=== PATIENT | female | born 1990 | race Caucasian/White ===

== ENCOUNTER 2018-08-30 15:57 | Inpatient (IN) | payer OTHER ==
[~2018-08-30] VITALS: Ht 160 cm; Wt 53.2 kg
--- NOTE | ~2018-08-30 | EKG ---
[place], [place] ELECTROCARDIOGRAM REPORT NAME: DEZ MOMIN UNIT #: [id number] ROOM: 512 DOCTOR: RYANNE DRAFT REPORT BIRTHDATE: [birth year] [facility] Test Date: 2018-09-01 Test Time: 13:52:18 Pat Name: DEZ MOMIN Department: Room: 512 1 Gender: F Shot Examiner: Angela Suárez : 1990 Requested By: CYRUS OCAMPO Order Number: [id number] Reading MD: Alon Abebe MD Measurements Intervals Alleene Rate: 51 P: 31 MA: 95 QRS: 44 QRSD: 89 T: 45 QT: 472 QTc: 435 Interpretive Statements Sinus rhythm Short MA interval LVH by voltage Baseline wander in lead(s) V4 Electronically Signed On 09-01-2018 15:32:13 PST by Alon Abebe MD CM:EKGRPT:ELECTROCARDIOGRAM REPORT [id number] CYRUS FITCH DRAFT REPORT CYRUS OCAMPO DO
[2018-08-30 17:37] LABS: BASO % 0.2 % (0.0-1.0); EOS % 0.3 % (1.0-4.0); HEMATOCRIT 38.1 % (37.0-47.0); LYMPH # 1.4 10*3/uL (1.3-4.4); LYMPH % 22.3 % (27.0-41.0); MEAN CELL VOLUME 89.2 fl (81.0-99.0); MEAN CORPUSCULAR HGB 30.4 pg (27.0-31.0); MEAN CORPUSCULAR HGB CONC 34.1 g/dl (33.0-37.0); MEAN PLATELET VOLUME 9.8 fl (9.6-12.3); MONO # 0.3 10*3/uL (0.1-1.0); MONO % 4.8 % (3.0-9.0); NEUT # 4.7 10*3/uL (2.3-7.9); NEUT % 72.1 % (47.0-73.0); PLATELET COUNT AUTOMATED 243 10*3/uL (130-400); RED BLOOD COUNT 4.27 10*6/uL (4.10-5.10); RED CELL DISTRI WIDTH 13.1 % (0-14.5); WHITE BLOOD COUNT 6.5 10*3/uL (4.8-10.8)
[2018-08-30 17:50] LABS: ALBUMIN 3.8 gm/dl (3.1-4.5); ALKALINE PHOSPHATASE 87 U/L (45-117); BUN 10 mg/dl (7-24); CHLORIDE 108 mmol/L (98-107); CREATININE 0.74 mg/dL (0.55-1.02); POTASSIUM 4.1 mmol/L (3.5-5.1); SGOT/AST 18 IU/L (3-35); SGPT/ALT 25 U/L (12-78); SODIUM 139 mmol/L (136-145); TOTAL PROTEIN 7.8 gm/dL (6.4-8.2)
[2018-08-30 17:58] LABS: ETHYL ALCOHOL < 3.0 mg/dl (<3)
[2018-08-30 18:41] LABS: BILIRUBIN NEGATIVE (NEGATIVE); BLOOD NEGATIVE (NEGATIVE); CLARITY CLEAR (CLEAR); COLOR YELLOW (YELLOW); GLUCOSE NEGATIVE (NEGATIVE); KETONE NEGATIVE (NEGATIVE); LEUKO ESTERASE NEGATIVE (NEGATIVE); NITRITE NEGATIVE (NEGATIVE); PH 6.5 (5.0-9.0); SPECIFIC GRAVITY 1.025 (1.005-1.030)
[2018-08-30 18:49] LABS: URINE AMPHETAMINES < 1000 (1000ng/ml); URINE BARBITURATES < 200 (200ng/ml); URINE BENZODIAZEPINES < 200 (200ng/ml); URINE CANNABINOIDS (THC) > 50 (50ng/ml); URINE COCAINE > 300 (300ng/ml); URINE METHADONE < 300 (300ng/ml); URINE OPIATES > 300 (300ng/ml)
[2018-08-30 18:50] LABS: RBC 0-2 rbc/hpf (0-2); WBC 0-2 wbc/hpf (0-5)
[2018-08-30 19:04] LABS: URINE PHENCYCLIDINE < 25 (25ng/ml)
[2018-08-31 06:08] LABS: HEPATITIS B SURFACE AG Negative (Negative)
[2018-08-31 10:45] LABS: HEPATITIS C VIRUS ANTIBODY >11.0 s/co (0.0-0.9)
[2018-09-01 01:10] VITALS: BP 123/75
[2018-09-01 07:28] LABS: BASO % 0.1 % (0.0-1.0); HEMATOCRIT 39.8 % (37.0-47.0); HEMOGLOBIN 13.5 g/dl (12.0-16.0); LYMPH # 1.9 10*3/uL (1.3-4.4); LYMPH % 19.3 % (27.0-41.0); MEAN CELL VOLUME 88.2 fl (81.0-99.0); MEAN CORPUSCULAR HGB 29.9 pg (27.0-31.0); MEAN CORPUSCULAR HGB CONC 33.9 g/dl (33.0-37.0); MONO # 0.5 10*3/uL (0.1-1.0); MONO % 5.5 % (3.0-9.0); NEUT # 7.2 10*3/uL (2.3-7.9); NEUT % 74.9 % (47.0-73.0); PLATELET COUNT AUTOMATED 309 10*3/uL (130-400); RED BLOOD COUNT 4.51 10*6/uL (4.10-5.10); RED CELL DISTRI WIDTH 13.3 % (0-14.5); WHITE BLOOD COUNT 9.6 10*3/uL (4.8-10.8)
[2018-09-01 07:31] LABS: ALBUMIN 4.3 gm/dl (3.1-4.5); BUN 14 mg/dl (7-24); CHLORIDE 105 mmol/L (98-107); POTASSIUM 3.5 mmol/L (3.5-5.1); SGOT/AST 37 IU/L (3-35); SODIUM 136 mmol/L (136-145)
[2018-09-01 07:33] LABS: ALKALINE PHOSPHATASE 86 U/L (45-117); CREATININE 0.82 mg/dL (0.55-1.02); SGPT/ALT 26 U/L (12-78); TOTAL PROTEIN 8.4 gm/dL (6.4-8.2)
[2018-09-01 10:00] VITALS: BP 117/75
[2018-09-01 12:00] VITALS: BP 111/64
[2018-09-02] VITALS: BP 125/68
[2018-09-02 06:27] LABS: BASO % 0.1 % (0.0-1.0); EOS % 0.1 % (1.0-4.0); HEMATOCRIT 42.2 % (37.0-47.0); HEMOGLOBIN 14.5 g/dl (12.0-16.0); LYMPH # 2.8 10*3/uL (1.3-4.4); LYMPH % 31.3 % (27.0-41.0); MEAN CELL VOLUME 88.7 fl (81.0-99.0); MEAN CORPUSCULAR HGB 30.5 pg (27.0-31.0); MEAN CORPUSCULAR HGB CONC 34.4 g/dl (33.0-37.0); MEAN PLATELET VOLUME 9.9 fl (9.6-12.3); MONO # 0.7 10*3/uL (0.1-1.0); NEUT # 5.4 10*3/uL (2.3-7.9); NEUT % 60.3 % (47.0-73.0); PLATELET COUNT AUTOMATED 324 10*3/uL (130-400); RED BLOOD COUNT 4.76 10*6/uL (4.10-5.10); WHITE BLOOD COUNT 8.9 10*3/uL (4.8-10.8)
[2018-09-02 06:53] LABS: BUN 20 mg/dl (7-24); CHLORIDE 101 mmol/L (98-107); CREATININE 0.89 mg/dL (0.55-1.02); POTASSIUM 3.4 mmol/L (3.5-5.1); SODIUM 138 mmol/L (136-145)
[2018-09-02 08:00] VITALS: BP 126/75
[2018-09-02 16:00] VITALS: BP 129/74
[2018-09-02 20:00] VITALS: BP 128/77
[2018-09-03] VITALS: BP 125/69
[2018-09-03 08:00] VITALS: BP 120/77
== END 2018-09-03 10:09 | disposition left against medical advice (07) | DRG 894 ==
LOC: 5E 15:57
PROVIDERS: Internal Medicine; Podiatrist Primary Podiatric Medicine
DX: F11.23 Opioid dependence with withdrawal (principal); E87.8 Other disorders of electrolyte and fluid balance, not elsewhere classified; F14.10 Cocaine abuse, uncomplicated; F32.9 Major depressive disorder, single episode, unspecified; R61 Generalized hyperhidrosis; F12.10 Cannabis abuse, uncomplicated; Z53.21 Procedure and treatment not carried out due to patient leaving prior to being seen by health care provider; Z71.6 Tobacco abuse counseling; Z72.0 Tobacco use